=== PATIENT | male | born 1965 | race Caucasian/White ===

== ENCOUNTER 2018-08-01 07:58 | Outpatient (CLI) | payer MEDICARE ==
[2018-08-01] MEDS ORDERED: Gadobenate Dimeglumine 529 MG/1 ML (20ML VIAL) ONE (12:06)
--- NOTE | 2018-08-02 10:14 | MRI ---
MRI BRAIN WITH AND WITHOUT CONTRAST: HISTORY: Right-sided weakness. snf patient. Previous surgical resection for a neoplasm. Hemiplegia and hemiparesis on the right side. COMPARISON: None. CORRELATION: MRI report 10/18/2012. TECHNIQUE: MRI brain is performed with and without intravenous Gadolinium administration. Multisequential, mult iplanar imaging is performed. FINDINGS: There is hemosiderin deposition at the operative site. There is a resection cavity in the left front al region, measuring 4.2 x 4.6 cm. There is malacic and gliottic change along the left frontal and t emporal lobes. Additional areas of malacia and gliosis noted along the medial aspect of the right fr ontal lobe. Calvarium has a normal marrow signal intensity. Midline brain parenchymal structures are unremarkabl e. Central arterial flow voids are maintained. Absent restricted diffusion. Minimal mucosal disease of the paranasal sinuses. Adequate mastoid air cell aeration. Postoperative changes along the left calvarium. On the postcontrast images, there is peripheral enhancement along the surgical cavity which may repre sent postsurgical change. There is mild pachymeningeal enhancement of the dura, which is nonspecific . Enhancing foci are noted in the left temporal lobe, posterior to the left lentiform nucleus and sligh tly lateral to the left thalamus. These areas of enhancement are not reported on the previous MRI re port and are worrisome for recurrent disease until proven otherwise. These areas of enhancement damian ure 0.5 x 0.6 and 0.7 x 0.4 respectively. There is a small focus of enhancement suggested in the lef t insular cortex. IMPRESSION: 1. Redemonstration of a postsurgical cavity in the left frontal lobe with associated changes. Perip heral enhancement likely represents scar tissue. 2. Small areas of enhancing involving the left cerebrum, as described above. These areas of enhance ment are not reported on an MRI from September of 2012. The possibility of tumor recurrence is raised. POS: [facility]
== END 2018-08-01 07:59 | disposition home or self-care (01) ==
LOC: MERGE 07:58 → SCSMRI 07:58
PROVIDERS: ATTEND Family Medicine
DX: D49.6 Neoplasm of unspecified behavior of brain (principal); Z98.890 Other specified postprocedural states
CPT/HCPCS: 70553; A9579

== ENCOUNTER 2018-08-25 11:20 | Outpatient (CLI) | payer MEDICARE ==
[2018-08-25] MEDS ORDERED: Iopamidol 370 76% 100 ML VIAL ONE (13:31)
--- NOTE | 2018-08-25 14:08 | CT ---
CT OF CHEST AND ABDOMEN AND PELVIS PERFORMED WITH IV CONTRAST ENHANCEMENT: Date: 08/25/18 HISTORY: Weight loss. 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 COMPARISON: MRI brain study of 08/01/18. FINDINGS: The lungs are clear of infiltrative process. There is a tiny noncalcified anterior segment right uppe r lobe pulmonary nodule measuring approximately 3.0 mm. There is a calcified granuloma in the right l ower lobe. No other nodules are identified. No infiltrative process. No pleural effusions. There is s ome minimal atelectatic change in the right base. There is some minimal soft tissue change in the anterior mediastinum which appears to represent some minimal residual thymic tissue. I do not appreciate any significant mediastinal or hilar adenopathy. There are coronary artery calcifications present. CT of abdomen was performed with IV contrast enhancement. The liver, spleen, pancreas, and gallbladde r regions appear unremarkable. Right and left adrenal glands, and right and left kidneys are normal in size. No masses are seen. No significant periaortic or mesenteric adenopathy. I do not appreciate any bowel wall abnormalities. A moderate amount of stool is seen within the colon. CT of pelvis was performed with contrast enhancement. There is no evidence of any significant adenopa thy, mass, or free fluid. Prostate calcifications are seen. Review of osseous structures show no blastic bony change. The bones appear slightly demineralized. Wi thin the sacrum are some subtle subcentimeter lucent areas in both the iliac bones. I would suspect t hat these changes are most likely on the basis of demineralization. One area appears to cause some sl ight indentation or thinning to the cortex on the left. This is seen on axial image 95. Somewhat unus ual on the basis of osteoporosis. Postoperative changes of the right hip are seen. IMPRESSION: 1. 3-4 mm noncalcified right upper lobe pulmonary nodule. 2. Suggestion of some overall bony demineralization. There are not definitive defined lytic bone juanito nges, but there are some subtle areas of lucency in the right and left iliac bones which is somewhat indeterminate. I would still favor that they are on the basis of osteoporosis, but, if clinically ind icated, bone scan may be helpful in further assessment. POS: [facility]
== END 2018-08-25 11:21 | disposition home or self-care (01) ==
LOC: CT 11:20
PROVIDERS: ATTEND Internal Medicine Hematology & Oncology
DX: D43.0 Neoplasm of uncertain behavior of brain, supratentorial (principal); R63.4 Abnormal weight loss; R91.1 Solitary pulmonary nodule
CPT/HCPCS: 71260; 74177

== ENCOUNTER 2019-11-28 07:23 | Day surgery (SDC) | payer MEDICARE, MEDICAID ==
[2019-11-27 16:40] VITALS: BMI 22.0
[2019-11-28] MEDS ORDERED: Lidocaine 1% PF 5 ML VIAL ONE (10:58)
[2019-11-28] MEDS ORDERED: PROPOFOL 200 MG/20 ML VIAL ONE (10:58)
--- NOTE | 2019-11-28 11:13 | OP ---
DATE OF PROCEDURE: 11/28/2019 PROCEDURE PERFORMED: Colonoscopy with snare polypectomy. PREOPERATIVE DIAGNOSIS: Hematochezia. DESCRIPTION OF PROCEDURE: Informed consent was obtained from the patient. He was sedated with total intravenous anesthesia. The rectal exam was performed and was normal. The preparation quality was excellent. The colonoscope was advanced with difficulty to the terminal ileum. There was a fixed area of the colon over towards, it was likely the splenic flexure. There was a twist with the colon in this area. The colon was very tortuous. The mucosa of the terminal ileum was normal. The ileocecal valve and appendiceal orifice were clearly identified. The colonic mucosa was normal throughout. There was a 5 mm polyp in the rectum, which was removed by snare cautery polypectomy. Retroflexed views in the rectum revealed small internal hemorrhoids. IMPRESSION: 1. 5 mm polyp removed from the rectum. 2. Small internal hemorrhoids were likely a bleeding source. 3. Otherwise normal colonoscopy to the terminal ileum. RECOMMENDATIONS: 1. Await histopathology. 2. Future surveillance colonoscopy will depend on pathology results. 3. Resume Plavix today. 4. Follow up in GI Clinic as needed. Job ID: [id number]
== END 2019-11-28 11:30 ==
LOC: SDC 07:23
PROVIDERS: ATTEND Internal Medicine Gastroenterology
PROC: 0DBP8ZX Excision of Rectum, Via Natural or Artificial Opening Endoscopic, Diagnostic (ICD-10-PCS; principal; 2019-11-28)
DX: D12.8 Benign neoplasm of rectum (principal); K64.8 Other hemorrhoids; Q43.8 Other specified congenital malformations of intestine; I69.391 Dysphagia following cerebral infarction; R13.10 Dysphagia, unspecified; I69.351 Hemiplegia and hemiparesis following cerebral infarction affecting right dominant side; M10.9 Gout, unspecified; I51.9 Heart disease, unspecified; E78.00 Pure hypercholesterolemia, unspecified; M06.9 Rheumatoid arthritis, unspecified; Z79.02 Long term (current) use of antithrombotics/antiplatelets; Z79.82 Long term (current) use of aspirin; Z79.899 Other long term (current) drug therapy; Z99.3 Dependence on wheelchair
CPT/HCPCS: 88305; J2001; J2704